=== PATIENT | female | born 1960 | race Caucasian/White ===

== ENCOUNTER 2017-11-12 09:13 | Emergency (ER) | payer OTHER ==
[2017-11-12 09:26] VITALS: BP 154/94; PULSE 101; TEMP 98.9; BMI 32.1
--- NOTE | 2017-11-12 11:25 | PDOC ---
History of Present Illness - General Chief Complaint: Respiratory Stated Complaint: COUGH Time Seen by Provider: 11/12/17 09:59 History Source: Patient Exam Limitations: No Limitations - History of Present Illness Initial Comments: 11/12/17 12:00 Patient is a [57-year-old female with history of hypothyroidism since with one week of moist cough patient reports cough force and yesterday was coughing hard and noticed some blood in her sputum. Patient denies any fever, no chills, no chest pain or shortness of breath. Denies any nausea vomiting or diarrhea.] Allergies: No known allergies Medications: [Synthroid] Family History: Non-contributory Social History: Denies smoking, alcohol use, or IVDU Review of Systems GENERAL/CONSTITUTIONAL: [No fever or chills. No weakness. No weight change.] HEAD, EYES, EARS, NOSE AND THROAT: [No change in vision. No ear pain or discharge. No sore throat. ] CARDIOVASCULAR: [No chest pain or shortness of breath.] RESPIRATORY: [No cough, wheezing, or hemoptysis.] GASTROINTESTINAL: [No nausea, vomiting, diarrhea or constipation. No rectal bleeding.] GENITOURINARY: [No dysuria, frequency, or change in urination.] MUSCULOSKELETAL: [No joint or muscle swelling or pain. No neck or back pain.] SKIN AND BREASTS: [No rash or easy bruising.] NEUROLOGIC: [No headache, vertigo, loss of consciousness, or loss of sensation.] PSYCHIATRIC: [No depression or anxiety.] ENDOCRINE: [No increased thirst. No abnormal weight change.] HEMATOLOGIC/LYMPHATIC: [No anemia, easy bleeding, or history of blood clots.] ALLERGIC/IMMUNOLOGIC: [No hives or skin allergy. No latex allergy.] Physical Exam: GENERAL: [The patient is awake, alert, and fully oriented, in no acute distress. ] HEAD: [Normal with no signs of trauma.] EYES: [Pupils equal, round and reactive to light, extraocular movements intact, sclera anicteric, conjunctiva clear.] ENT: [Ears normal, nares patent, oropharynx erythematous without exudates. Moist mucous membranes. No uvula deviation] NECK: [Normal range of motion, supple without lymphadenopathy, JVD, or masses.] LUNGS: [Breath sounds equal no wheezes, rhonchi which cleared with cough HEART: [Regular rate and rhythm, normal S1 and S2 without murmur, rub or gallop. ] ABDOMEN: [Soft, nontender, normoactive bowel sounds. No guarding, no rebound. No masses. No bruising or abrasions] MUSCULOSKELETAL: [Normal range of motion, no edema. No clubbing or cyanosis. No cords, erythema, or tenderness. No CVA Tenderness with fist.] NEUROLOGICAL: [Cranial nerves II through XII grossly intact. Normal speech, normal gait.] SKIN: [Warm, Dry, normal turgor, no rashes or lesions noted.] Past History - Past Medical History Allergies/Adverse Reactions: Allergies Allergy/AdvReac Type Severity Reaction Status Date / Time No Known Allergies Allergy Verified 11/12/17 09:25 Home Medications: Ambulatory Orders Levothyroxine [Synthroid -] 75 mcg PO DAILY 11/07/14 Dibucaine [Nupercainal] 56.7 gm RC BID PRN #1 oint...g. 10/05/15 Hydrocortisone Acetate [Anusol Hc Suppository -] 25 mg RC BID #28 supp.rect Azithromycin [Zithromax 250mg Tablets -] 250 mg PO UTDICT #6 tab 11/12/17 Promethazine HCl [Phenergan Plain 6.25 MG/5 ML -] 5 ml PO QID #30 ml 11/12/17 Cancer: No COPD: No GI Disorders: Yes (CONSTIPATION,HEMMORHOIDS) Thyroid Disease: Yes - Surgical History Abdominal Surgery: Yes (LEFT INGUINAL HERNIA REPAIR, TUBAL LIGATION) Appendectomy: Yes - Suicide/Smoking/Psychosocial Hx Smoking Status: Yes Smoking History: Never smoked Number of Cigarettes Smoked Daily: 0 Hx Alcohol Use: No Drug/Substance Use Hx: No Substance Use Type: None *Physical Exam - Vital Signs Last Vital Signs Temp Pulse Resp BP Pulse Ox 98.9 F 101 H 20 154/94 100 11/12/17 09:23 11/12/17 09:23 11/12/17 09:23 11/12/17 09:23 11/12/17 09:23 ED Treatment Course - ADDITIONAL ORDERS Additional order review: 11/12/17 10:10 Influenza Types A,B Antigen (HAYDEE) - Final Nasopharyngeal Swab - Final Medical Decision Making - Medical Decision Making 11/12/17 12:02 A/P: Patient here with cough since Tuesday, no chills, no nausea vomiting or diarrhea, no sore throat, no chest pain or shortness of breath. Patient reports yesterday she was coughing hard and noticed some blood-tinged sputum no episodes since. I will send a rapid influenza which is negative, patient was noted with rhonchi coughed and then rhonchi cleared I will discharge patient home on azithromycin and promethazine for cough, encourage patient to get cool air humidifier. If symptoms do not start to improve in 2 days follow-up with primary care doctor. I discussed the physical exam findings, ancillary test results and final diagnoses with the patient. I answered all of the patient's questions. The patient was satisfied with the care received and felt comfortable with the discharge plan and treatment plan. The patient will call to arrange follow-up and will return to the Emergency Department with any new, persistent or worsening symptoms. *DC/Admit/Observation/Transfer Diagnosis at time of Disposition: Bronchitis - Discharge Dispostion Disposition: HOME Condition at time of disposition: Stable Admit: No - Prescriptions Prescriptions: Azithromycin [Zithromax 250mg Tablets -] 250 mg PO UTDICT #6 tab Promethazine HCl [Phenergan Plain 6.25 MG/5 ML -] 5 ml PO QID #30 ml - Referrals Referrals: Madeline Jara MD [Primary Care Provider] - - Patient Instructions Printed Discharge Instructions: Acute Bronchitis Additional Instructions: Keep head of bed elevated 45 when sleeping Motrin for fever greater than 101 Followup in the primary care doctor's office in 2 days for evaluation. If any respiratory distress, increased cough, inability to drink, increased wheezing please return immediately to emergency department. - Post Discharge Activity Forms/Work/School Notes: Back to Work
== END 2017-11-12 11:34 | disposition home or self-care (01) ==
LOC: JERFT 09:13
DX: J40 Bronchitis, not specified as acute or chronic (principal); E03.9 Hypothyroidism, unspecified; Z87.19 Personal history of other diseases of the digestive system
CPT/HCPCS: 87804; 99281-25

== ENCOUNTER 2019-01-15 14:58 | Emergency (ER) | payer OTHER ==
--- NOTE | 2019-01-15 15:34 | PDOC ---
Rapid Medical Evaluation Chief Complaint: Pain Time Seen by Provider: 01/15/19 15:30 Medical Evaluation: Allergies Allergy/AdvReac Type Severity Reaction Status Date / Time No Known Allergies Allergy Verified 11/12/17 09:25 01/15/19 15:30 I have performed a brief in-person evaluation of this patient The patient present with a chief complaint of: left knee pain x 1 month. Patient reports pain to back of left knee that is getting worse. States given pain medication for the same in the past. Denies injury or fall Pertinent physical exam findings: NAD even and unlabored breathing EXT: +tenderness behind left knee, -katja's sound I have ordered the following: u/s, The patient will proceed to the ED for further evaluation. Discharge Disposition - Diagnosis Knee pain, left - Referrals - Patient Instructions - Post Discharge Activity
[2019-01-15 15:36] VITALS: BP 157/101; PULSE 121; TEMP 98.2; BMI 34.0
--- NOTE | 2019-01-15 16:40 | PDOC ---
History of Present Illness - General Chief Complaint: Pain Stated Complaint: LT KNEE PAIN Time Seen by Provider: 01/15/19 15:30 - History of Present Illness Initial Comments: 01/15/19 16:36 58-year-old female with a past medical history significant for hypothyroidism presents for evaluation of atraumatic left knee pain times one month no chest pain shortness of breath or systemic symptoms Past History - Past Medical History Allergies/Adverse Reactions: Allergies Allergy/AdvReac Type Severity Reaction Status Date / Time No Known Allergies Allergy Verified 01/15/19 15:36 Home Medications: Ambulatory Orders Levothyroxine [Synthroid -] 75 mcg PO DAILY 11/07/14 Dibucaine [Nupercainal] 56.7 gm RC BID PRN #1 oint...g. 10/05/15 Hydrocortisone Acetate [Anusol Hc Suppository -] 25 mg RC BID #28 supp.rect Azithromycin [Zithromax 250mg Tablets -] 250 mg PO UTDICT #6 tab 11/12/17 Promethazine HCl [Phenergan Plain 6.25 MG/5 ML -] 5 ml PO QID #30 ml 11/12/17 Cancer: No COPD: No GI Disorders: Yes (CONSTIPATION,HEMMORHOIDS) Thyroid Disease: Yes - Surgical History Abdominal Surgery: Yes (LEFT INGUINAL HERNIA REPAIR, TUBAL LIGATION) Appendectomy: Yes - Suicide/Smoking/Psychosocial Hx Smoking Status: Yes Smoking History: Never smoked Have you smoked in the past 12 months: No Number of Cigarettes Smoked Daily: 0 Information on smoking cessation initiated: No Hx Alcohol Use: No Drug/Substance Use Hx: No Substance Use Type: None Review of Systems - Review of Systems Constitutional: No: Fever Respiratory: No: Cough, Shortness of Breath Cardiac (ROS): No: Chest Pain *Physical Exam - Vital Signs Last Vital Signs Temp Pulse Resp BP Pulse Ox 98.2 F 121 H 18 157/101 H 100 01/15/19 15:29 01/15/19 15:29 01/15/19 15:29 01/15/19 15:29 01/15/19 15:29 - Physical Exam Comments: 01/15/19 16:38 Left knee skin color and temperature are normal range of motion 0-90 with mild discomfort. There is tenderness about the posterior aspect of the knee. No medial lateral joint line tenderness or instability. Thighs and calves are soft and nontender. She is neurovascularly intact free of any gross sensorimotor deficits. ED Treatment Course - RADIOLOGY Radiology Studies Ordered: Category Date Time Status KNEE 3 POS-LEFT [RAD] Stat Radiology 01/15/19 16:33 Ordered Medical Decision Making - Medical Decision Making 01/15/19 17:59 X-rays of the left knee show no evidence of fracture. Chondrocalcinosis of the medial meniscus with mildly calcified MCL. Vital signs due to anxiety patient states she was nervous about her knee and nervous about coming to the emergency room. She stable. I will have her follow-up with orthopedic surgery for further evaluation and treatment options of her right knee arthritis. *DC/Admit/Observation/Transfer Diagnosis at time of Disposition: Knee pain, left - Discharge Dispostion Disposition: HOME Condition at time of disposition: Stable Decision to Admit order: No - Referrals Referrals: Madeline Jara MD [Primary Care Provider] - Raymundo Ramos DO [Staff Physician] - - Patient Instructions Printed Discharge Instructions: Osteoarthritis, DI for Osteoarthritis Additional Instructions: He may weight-bear as tolerated. Return to the emergency room for worsening symptoms. Please follow-up with orthopedic surgery in 1-2 days for further evaluation and treatment options. Your Doppler study today was normal. Your x- ray did show arthritis. - Post Discharge Activity
--- NOTE | 2019-01-16 14:43 | EKG ---
Test Reason : Blood Pressure : / mmHG Vent. Rate : 109 BPM Atrial Rate : 109 BPM P-R Int : 154 ms QRS Dur : 092 ms QT Int : 342 ms P-R-T Axes : 043 027 036 degrees QTc Int : 460 ms SINUS TACHYCARDIA POSSIBLE LEFT ATRIAL ENLARGEMENT BORDERLINE ECG WHEN COMPARED WITH ECG OF 28-DEC-2014 15:41, NO SIGNIFICANT CHANGE WAS FOUND Confirmed by Will Cotton ([id number]) on 01/16/2019 2:42:52 PM Referred By: Confirmed By:Will Cotton
== END 2019-01-15 18:11 | disposition home or self-care (01) ==
LOC: JERFT 14:58
DX: M11.262 Other chondrocalcinosis, left knee (principal); E03.9 Hypothyroidism, unspecified
CPT/HCPCS: 73562-TC-LT-FY; 93005; 93010; 93971-TC; 99281-25

== ENCOUNTER 2020-11-08 14:01 | Inpatient (IN) | payer OTHER ==
[2020-11-08] MEDS ORDERED: LACTATED RINGERS SOLUTION 1000 ML INFUS.BAG IV ONE (15:44)
[2020-11-08 16:02] LABS: BASO % 0.3 % (0-2.0); HEMATOCRIT 42.3 % (32.4-45.2); HEMOGLOBIN 14.5 GM/dL (10.7-15.3); LYMPH % 14.7 % (8-40); MCH 28.9 pg (25.7-33.7); MCHC 34.3 g/dl (32.0-36.0); MEAN CELL VOLUME 84.4 fl (80-96); MEAN PLT VOLUME 9.2 fl (7.5-11.1); MONO % 9.9 % (3.8-10.2); NEUT % 74.1 % (42.8-82.8); PLATELET COUNT 421 K/MM3 (134-434); RBC 5.01 M/mm3 (3.60-5.2); RDW 12.9 % (11.6-15.6); WHITE BLOOD COUNT 10.7 K/mm3 (4.0-10.0)
[2020-11-08 16:04] LABS: URINE APPEARANCE CLEAR; URINE BILIRUBIN NEGATIVE (NEGATIVE); URINE COLOR YELLOW; URINE GLUCOSE (UA) NEGATIVE (NEGATIVE); URINE KETONE NEGATIVE (NEGATIVE); URINE LEUK ESTERASE NEGATIVE (NEGATIVE); URINE NITRITE NEGATIVE (NEGATIVE); URINE PROTEIN NEGATIVE (NEGATIVE); URINE UROBILINOGEN 0.2 mg/dL (0.2-1.0)
[2020-11-08 16:29] LABS: INR 0.92 (0.83-1.09); PROTHROMBIN TIME (PATIENT) 11.4 SEC (9.7-13.0)
[2020-11-08 16:31] LABS: ACTIVATED PTT 26.2 SECONDS (25.2-36.5)
[2020-11-08 16:32] LABS: CHLORIDE 89 mmol/L (98-107); POTASSIUM 4.1 mmol/L (3.5-5.1); SODIUM 123 mmol/L (136-145)
[2020-11-08 16:34] LABS: CALCIUM 8.1 mg/dL (8.5-10.1)
[2020-11-08 16:35] LABS: ALBUMIN 3.2 g/dl (3.4-5.0); ANION GAP 8 MMOL/L (8-16); BLOOD UREA NITROGEN 10.2 mg/dL (7-18); CO2 26 mmol/L (21-32); GLUCOSE,RANDOM 108 mg/dL (74-106)
[2020-11-08 16:37] LABS: BILIRUBIN,DIRECT 0.2 mg/dL (0.0-0.2)
[2020-11-08 16:38] LABS: CREATININE 0.5 mg/dL (0.55-1.3); SGOT/AST 90 U/L (15-37); SGPT/ALT 123 U/L (13-61)
[2020-11-08 16:39] LABS: BILIRUBIN,TOTAL 0.8 mg/dL (0.2-1); TOT PROT 6.7 g/dl (6.4-8.2)
[2020-11-08 16:41] LABS: ALK PHOS 105 U/L (45-117); LDH 455 U/L (84-246)
[2020-11-08] MEDS ORDERED: SODIUM CHLORIDE 0.9% 500 ML INFUS.BAG IV ONE (16:43)
[2020-11-08 16:51] LABS: ANISOCYTOSIS 1+; MACROCYTOSIS 0; PLATELET ESTIMATE NORMAL
[2020-11-08] MEDS ORDERED: BENZOCAINE 28 GM HEMORRHOIDAL OINTMENT RC PRN (18:03)
[2020-11-08] MEDS ORDERED: ENOXAPARIN NA (PORCINE) 40 MG/0.4 ML DISP.SYRIN SQ ONE (18:18)
[2020-11-08] MEDS: SODIUM CHLORIDE 1,000 ML IV SCH (18:28)
[2020-11-08] MEDS: ENOXAPARIN NA (PORCINE) 40 MG/0.4 ML DISP.SYRIN SQ SCH (18:28)
[2020-11-08 23:16] LABS: POTASSIUM 3.9 mmol/L (3.5-5.1)
[2020-11-08 23:20] LABS: BLOOD UREA NITROGEN 6.5 mg/dL (7-18); CALCIUM 8.5 mg/dL (8.5-10.1)
[2020-11-08 23:24] LABS: CREATININE 0.5 mg/dL (0.55-1.3)
[2020-11-09] MEDS ORDERED: ACETAMINOPHEN 325 MG TABLET (FP) PO PRN (00:55)
[2020-11-09] MEDS: LEVOTHYROXINE NA 75 MCG TABLET (FP) PO SCH (06:04)
[2020-11-09] MEDS: ENOXAPARIN NA (PORCINE) 40 MG/0.4 ML DISP.SYRIN SQ SCH (09:23)
[2020-11-09] MEDS ORDERED: LEVOTHYROXINE NA 75 MCG TABLET (FP) PO SCH (10:00)
[2020-11-09] MEDS: SODIUM CHLORIDE 1,000 ML IV SCH (11:14)
[2020-11-09 13:23] LABS: BASO % 0.2 % (0-2.0); HEMATOCRIT 39.7 % (32.4-45.2); HEMOGLOBIN 13.7 GM/dL (10.7-15.3); LYMPH % 20.3 % (8-40); MCH 29.3 pg (25.7-33.7); MCHC 34.7 g/dl (32.0-36.0); MEAN CELL VOLUME 84.6 fl (80-96); MEAN PLT VOLUME 8.6 fl (7.5-11.1); MONO % 12.4 % (3.8-10.2); NEUT % 66.1 % (42.8-82.8); PLATELET COUNT 375 K/MM3 (134-434); RBC 4.69 M/mm3 (3.60-5.2); RDW 13.4 % (11.6-15.6); WHITE BLOOD COUNT 9.1 K/mm3 (4.0-10.0)
[2020-11-09 13:48] LABS: BLOOD UREA NITROGEN 7.9 mg/dL (7-18); CALCIUM 8.2 mg/dL (8.5-10.1); MAGNESIUM 2.1 mg/dL (1.8-2.4)
[2020-11-09 13:52] LABS: CREATININE 0.5 mg/dL (0.55-1.3)
[2020-11-09] MEDS: AZITHROMYCIN IVPB 500 MG/250 ML BAG IVPB SCH (15:23)
[2020-11-09 16:03] LABS: ANISOCYTOSIS 1+; MACROCYTOSIS 1+; PLATELET ESTIMATE NORMAL
[2020-11-09] MEDS: DEXAMETHASONE SOD PHOSPHATE 4 MG/1 ML VIAL IVPUSH SCH (16:30)
[2020-11-10] MEDS: LEVOTHYROXINE NA 75 MCG TABLET (FP) PO SCH (06:24)
[2020-11-10 09:26] LABS: BASO % 0.4 % (0-2.0); HEMATOCRIT 43.5 % (32.4-45.2); HEMOGLOBIN 14.5 GM/dL (10.7-15.3); LYMPH % 13.8 % (8-40); MCH 28.4 pg (25.7-33.7); MCHC 33.2 g/dl (32.0-36.0); MEAN CELL VOLUME 85.6 fl (80-96); MEAN PLT VOLUME 8.6 fl (7.5-11.1); MONO % 7.5 % (3.8-10.2); NEUT % 78.3 % (42.8-82.8); PLATELET COUNT 461 K/MM3 (134-434); RBC 5.08 M/mm3 (3.60-5.2); RDW 13.6 % (11.6-15.6); WHITE BLOOD COUNT 10.6 K/mm3 (4.0-10.0)
[2020-11-10 09:47] LABS: POTASSIUM 4.5 mmol/L (3.5-5.1)
[2020-11-10 09:56] LABS: CALCIUM 8.5 mg/dL (8.5-10.1)
[2020-11-10 09:57] LABS: BLOOD UREA NITROGEN 8.5 mg/dL (7-18)
[2020-11-10 10:00] LABS: CREATININE 0.5 mg/dL (0.55-1.3)
[2020-11-10 10:01] LABS: BILIRUBIN,TOTAL 0.6 mg/dL (0.2-1); TOT PROT 6.3 g/dl (6.4-8.2)
[2020-11-10] MEDS: ENOXAPARIN NA (PORCINE) 40 MG/0.4 ML DISP.SYRIN SQ SCH (10:31)
[2020-11-10] MEDS: AZITHROMYCIN IVPB 500 MG/250 ML BAG IVPB SCH (10:32)
[2020-11-10] MEDS: DEXAMETHASONE SOD PHOSPHATE 4 MG/1 ML VIAL IVPUSH SCH (10:32)
[2020-11-10 13:14] VITALS: BMI 32.1
[2020-11-10] MEDS: FAMOTIDINE 20 MG TABLET PO SCH ×2 (13:45→21:18)
[2020-11-10] MEDS: SODIUM CHLORIDE 1,000 ML IV SCH ×2 (13:45→18:51)
[2020-11-11] MEDS: LEVOTHYROXINE NA 75 MCG TABLET (FP) PO SCH (06:10)
[2020-11-11] MEDS: SODIUM CHLORIDE 1,000 ML IV SCH (08:33)
[2020-11-11] MEDS: ENOXAPARIN NA (PORCINE) 40 MG/0.4 ML DISP.SYRIN SQ SCH (09:42)
[2020-11-11] MEDS: FAMOTIDINE 20 MG TABLET PO SCH ×2 (09:43→21:10)
[2020-11-11] MEDS: DEXAMETHASONE SOD PHOSPHATE 4 MG/1 ML VIAL IVPUSH SCH (09:43)
[2020-11-11] MEDS: AZITHROMYCIN IVPB 500 MG/250 ML BAG IVPB SCH (12:03)
[2020-11-11] MEDS ORDERED: guaiFENesin 200 MG/10 ML 10 ML UNIT-DOSE CUPS PO PRN (15:49)
[2020-11-12] MEDS: LEVOTHYROXINE NA 112 MCG TABLET (FP) PO SCH (06:12)
[2020-11-12 08:47] LABS: POTASSIUM 4.3 mmol/L (3.5-5.1)
[2020-11-12 09:06] LABS: CALCIUM 8.5 mg/dL (8.5-10.1)
[2020-11-12 09:10] LABS: CREATININE 0.6 mg/dL (0.55-1.3)
[2020-11-12] MEDS: DEXAMETHASONE SOD PHOSPHATE 4 MG/1 ML VIAL IVPUSH SCH (09:43)
[2020-11-12] MEDS: ENOXAPARIN NA (PORCINE) 40 MG/0.4 ML DISP.SYRIN SQ SCH (09:44)
[2020-11-12] MEDS: ESCITALOPRAM OXALATE 10 MG TABLET PO SCH (09:44)
[2020-11-12] MEDS: FAMOTIDINE 20 MG TABLET PO SCH ×2 (09:45→21:03)
[2020-11-12] MEDS: AZITHROMYCIN IVPB 500 MG/250 ML BAG IVPB SCH (09:45)
[2020-11-12] MEDS ORDERED: ALBUTEROL SO4 HFA INHALER IH PRN (13:08)
[2020-11-13] MEDS: LEVOTHYROXINE NA 112 MCG TABLET (FP) PO SCH (06:17)
[2020-11-13] MEDS: DEXAMETHASONE SOD PHOSPHATE 4 MG/1 ML VIAL IVPUSH SCH (09:00)
[2020-11-13] MEDS: ESCITALOPRAM OXALATE 10 MG TABLET PO SCH (09:00)
[2020-11-13] MEDS: ENOXAPARIN NA (PORCINE) 40 MG/0.4 ML DISP.SYRIN SQ SCH (09:00)
[2020-11-13] MEDS: FAMOTIDINE 20 MG TABLET PO SCH ×2 (09:01→21:06)
[2020-11-13 21:19] VITALS: BP 153/83; PULSE 89; TEMP 98.3
== END 2020-11-13 21:21 | disposition home or self-care (01) | DRG 137 ==
LOC: JER 14:01 → JERBED 16:43 → J5WEST-2 23:12
PROVIDERS: ADMIT Internal Medicine; ATTEND Internal Medicine
DX: U07.1 COVID-19 (principal); J12.82 Pneumonia due to coronavirus disease 2019; E87.1 Hypo-osmolality and hyponatremia; E03.9 Hypothyroidism, unspecified; I10 Essential (primary) hypertension; R53.1 Weakness; J40 Bronchitis, not specified as acute or chronic
CPT/HCPCS: 36415; 71045-TC-FY; 71250-TC; 80048; 80053; 81003; 82248; 82550; 82728; 83605; 83615; 83735; 84443; 84484; 85025; 85379; 85610; 85730; 86140; 86769; 87040; 87086; 87804; 93005; 93010; 94010; 97116-GP; 97161-GP; 99285-25; C9803; U0003